=== PATIENT | male | born 1975 | race Caucasian/White ===

== ENCOUNTER → 2016-08-09 | Outpatient (CLI) | payer OTHER ==
[~2016-08-09] MED LIST: OMEG10007 PO; OXYC-57 PO; VALA1TAB31 PO
--- NOTE | 2016-08-09 12:24 | DIAGNOSTIC IMAGING REPORT ---
Limited abdominal ultrasound ABDOMEN FOR HERNIA CLINICAL HISTORY: R10.30 Left groin [id number] pain. Hernia. TECHNIQUE: Ultrasound COMPARISON STUDY: None FINDINGS: Small reducible fat-containing left inguinal hernia. Maximum diameter is approximately 1.3 cm. No evidence of bowel containment. No abnormality of the right inguinal region. IMPRESSION: Small fat-containing reducible left inguinal hernia. No evidence for right inguinal hernia. Electronically signed by: Brady Padron M.D. 08/09/2016 12:23 PM Dictated Date/Time: 08/09/2016 12:22 PM
== END | disposition home or self-care (01) ==
LOC: C.ULTR 10:49
PROVIDERS: ATTEND Nurse Practitioner Family
DX: R10.30 Lower abdominal pain, unspecified (principal); K40.90 Unilateral inguinal hernia, without obstruction or gangrene, not specified as recurrent

== ENCOUNTER → 2016-10-08 | Outpatient (CLI) | payer OTHER ==
[2016-10-08 16:29] LABS: BASO % 0.2 %; BASO ABS # 0.01 K/uL (0-0.2); COMPLETE YES; EOS % 1.4 %; IG% 0.5 %; LYMPH % 32.5 %; MEAN CELL VOLUME 92.3 fL (80-100); MEAN CORPUSCULAR HEMOGLOBIN 32.2 pg (25-34); MEAN CORPUSCULAR HGB CONC 34.9 g/dl (32-36); MEAN PLATELET VOLUME 11.4 fL (7.4-10.4); MONO % 7.8 %; NEUT % 57.6 %; PLATELET COUNT 238 K/uL (130-400); RED BLOOD COUNT 4.66 M/uL (4.7-6.1); WHITE BLOOD COUNT 5.53 K/uL (4.8-10.8)
[2016-10-08 17:01] LABS: ALT/SGPT 29 U/L (12-78); BLOOD UREA NITROGEN 16 mg/dl (7-18); BUN/CREATININE RATIO 21.1 (10-20); CALCIUM 8.6 mg/dl (8.5-10.1); CARBON DIOXIDE 29 mmol/L (21-32); CHLORIDE 104 mmol/L (98-107); CHOLESTEROL 198 mg/dl (0-200); CREATININE 0.74 mg/dl (0.60-1.40); GLUCOSE 89 mg/dl (70-99); SODIUM 140 mmol/L (136-145)
[2016-10-08 17:04] LABS: ALB/GLOB RATIO 1.2 (0.9-2); ALKALINE PHOSPHATASE 62 U/L (45-117); AST/SGOT 15 U/L (15-37); CHOLESTEROL/HDL RATIO 5.2; HDL CHOLESTEROL 38 mg/dl; LDL CHOLESTEROL CALCULATED 113 mg/dl; TRIGLYCERIDES 237 mg/dl (0-150); VERY LOW DENSITY LIPOPROT CALC 47 mg/dl
== END | disposition home or self-care (01) ==
LOC: C.LAB1850 15:46
PROVIDERS: ATTEND Nurse Practitioner Family
DX: Z13.220 Encounter for screening for lipoid disorders (principal); Z13.1 Encounter for screening for diabetes mellitus

== ENCOUNTER → 2016-11-13 | Day surgery (SDC) | payer OTHER ==
[2016-10-31 16:26] VITALS: BMI 31.0
[~2016-11-13] VITALS: Ht 177.8 cm; Wt 97.7 kg
[~2016-11-13] MED LIST changes: +ATROPINE SULFATE 0.1 MG/ML 5ML SYR IV PRN; +BACITRACIN 50000 UNIT VIAL ONE; +BUPIVACAINE 0.5 % 5 MG/1 ML MPF 30ML VIAL ONE; +CEFAZOLIN SOD 1 GM VIAL ONE; +DEXAMETHASONE SOD INJ 4 MG/ML VIAL ONE; +EpHEDrine SULFATE INJ 50 MG/ML AMP IV PRN; +FENTANYL CITRATE INJ 50 MCG/1 ML 2 ML VIAL ONE; +GLYCOPYRROLATE INJ 0.2 MG/ML VIAL ONE; +HYDROmorphone INJ 1 MG/ML SYR ONE; +HYDROmorphone INJ 2 MG/ML SYR/VIAL IV PRN; +KETOROLAC TROMETHAMINE 30 MG/ML VIAL ONE; +LACTATED RINGER'S 1000ML 1,000 ML IV SCH; +LIDOCAINE HCL 2% 2 ML VIAL (20MG/ML) ONE; +MIDAZOLAM HCL 1 MG/ML 2ML VIAL ONE; +MoRPHine SULFATE 4 MG/ML 1 ML CARP\\VIAL IV PRN; +NEOSTIGMINE METHYLSULFATE 5 MG/5 ML SYR ONE; +ONDANSETRON INJ 2 MG/ML 2 ML VIAL IV PRN; +ONDANSETRON INJ 2 MG/ML 2 ML VIAL ONE; +PHENYLEPHRINE 100MCG/ML 5ML SYR IV PRN; +PROPOFOL IV EMULSION 10 MG/ML 20 ML VIAL IV ONE; +ROCURONIUM BROMIDE 10 MG/ML 5 ML VIAL ONE
[2016-11-13 05:54] VITALS: BP 118/66; PULSE 66; TEMP 36.9; O2SAT 96; Ht 177.8 cm; Wt 97.7 kg
--- NOTE | 2016-11-13 06:39 | History and Physical ---
History & Physical Date November 13, 2016. History of Present Illness The patient is a 41 year old male with complaints of pain left groin and occ pain right groin. had toni ing hernia repair in 1995 and suspected used mesh then Additional History Hepatic Disease: No Endocrine Disorder: No Kidney Disease: No Hypertension: No Heart Disease: No Bleeding Tendencies: No Infectious Diseases: No Allergies Coded Allergies: No Known Allergies (Unverified , 11/13/16) Home Medications Scheduled Fish Oil (Allison-3), 1 CAP PO BID Scheduled PRN Valacyclovir Hcl (Valtrex), 2 GM PO Q12H PRN for UD Physical Examination Skin: warm/dry, no rash ENT: normal ENT inspection, pharynx normal Head: normocephalic, atraumatic Neck: supple, no adenopathy, trachea midline Respiratory/Chest: lungs clear, normal breath sounds, no respiratory distress Cardiovascular: regular rate, rhythm, no edema, no murmur Abdomen / GI: + pertinent finding (left recurrent ing hernia testes normal, right no definite hernia testes normal) Back: normal inspection Extremities: normal inspection, normal range of motion Neurologic/Psych: no motor/sensory deficits, alert, normal reflexes, oriented x 3 Diagnosis left rec ing hernia , possible right Plan of Treatment laparoscopic left ing rec hernia repair possible right rec ing hernia repair
--- NOTE | 2016-11-13 07:08 | Discharge Instructions ---
Discharge Instructions Date of Service November 13, 2016. Visit Reason for Visit: Left Inguinal Hernia Discharge Discharge Diagnosis / Problem: Laparoscopic hernia repair Discharge Goals Goal(s): Decrease discomfort Activity Recommendations Activity Limitations: as noted below Lifting Limitations: no more than 10 pounds Shower/Bathe: tomorrow Driving or Machine Use: 3-5 days Anesthesia . Post Anesthesia Instructions: If you have had General Anesthesia or IV Sedation: * Do not drive today. * Resume driving when surgeon permits. * Do not make important decisions or sign legal documents today. * Call surgeon for: 1. Temperature elevations greater than 101 degrees F. 2. Uncontrollable pain. 3. Excessive bleeding. 4. Persistent nausea and vomiting. 5. Medication intolerance (nausea, vomiting or rash). * For nausea and vomiting use only clear liquids such as: tea, soda, bouillon until nausea subsides, then gradually increase diet as tolerated. * If you have any concerns or questions, call your surgeon's office. If physician is unavailable and it is an emergency, call 911 or go to the nearest emergency room. . Instructions / Follow-Up Instructions / Follow-Up Dr. Bullock in 1 week, call [phone] if you do not already have an appt Ice left groin off and on alternating every 20 minutes until bedtime Diet Recommendations Recommended Home Diet: no limitations Pending Studies Studies pending at discharge: no Medical Emergencies . Who to Call and When: Medical Emergencies: If at any time you feel your situation is an emergency, please call 911 immediately. . Non-Emergent Contact Non-Emergency issues call your: Surgeon Call Non-Emergent contact if: you have a fever, temperature is above 101.5, your pain is not controlled . . "Provider Documentation" section prepared by Naren Harris. .
--- NOTE | 2016-11-13 08:16 | [facility] Post Operative Brief Note ---
Immediate Operative Summary Operative Date November 13, 2016. Pre-Operative Diagnosis Left Recurrent Inguinal Hernia, Possible Left Inguinal Hernia; History of Bilateral Inguinal Hernia Repairs Post-Operative Diagnosis Left Recurrent direct Inguinal Hernia, lipoma cord, neg exploration right ing canal Procedure(s) Performed Laparoscopic Recurrent Left Direct Inguinal Hernia Repair with Marlex Mesh, excision lipoma cord Evaluation of Right Inguinal Hernia Repair Surgeon Dr. Bullock Builder Beam Surgeon(s) DARRYL Bess Estimated Blood Loss 5 ml Findings smal direct dieect at symp pubis luz marina .8 cm with incarcerated fatty tissue, lipoma cord neg exploration right ing canal Specimens Culture--Urine (catheter)--sent for routine culture and sensitivity, sent to lab at 0730 A. Lipoma Left Inguinal
--- NOTE | 2016-11-13 08:44 | OPERATIVE REPORT ---
DATE OF OPERATION: 11/13/2016 PREOPERATIVE DIAGNOSIS: Left inguinal hernia, possible right inguinal hernia, both recurrent. POSTOPERATIVE DIAGNOSES: Left direct inguinal hernia recurrent, lipoma of the cord, negative exploration of the right groin canal. PROCEDURES: Laparoscopic repair of left indirect recurrent hernia with mesh Marlex patch, exploration of the right inguinal canal, excisional lipoma of the cord on the left. SURGEON: Dr. Bullock. CAR REPAIRER HELPER: Irsrael Harris PA-C. SUMMARY: The patient was brought into the operating room theater. Perez catheter was inserted. The abdomen was prepped with Betadine scrubbing solution and properly draped. We made a small incision supraumbilically sufficient enough to place a Veress needle followed by CO2 followed by 5 mm trocar. Point of entry inspected and no injury identified. At this point, the patient was placed in Trendelenburg position, the camera was inserted. We did not see any dimpling on either side of the inguinal canals. At this point, I placed a 5 mm left flank and a 5 mm right flank port with preemptive local analgesia 1% Xylocaine. The left inguinal area, I was able to reduce the hernia. Clinically on the right I was not sure the patient had a hernia, but he was having some discomfort; therefore we approached the left inguinal area first. As stated, there was no evidence of any peritoneal dimpling into the canal, but we opened the peritoneum from just at the medial aspect of the cord structure all the way to the medial umbilical ligament. Significant amount of fatty tissue was appreciated in the preperitoneal area. As we elevated this, we were able to expose even the cord. There was no evidence of any indirect hernia. As we freed down into the canal and went down to Matt's ligament and looking and paying attention to the symphysis pubis area for possible recurrence in that area as there usually are. There was a lipoma coming up on top of the iliac vessels almost along the cord which I removed and biopsied. At this point, we did not see any direct defect immediately, there was no femoral hernia. We then moved up towards right at the symphysis pubis and we could see incarcerated tissue going down right the pubis. We at this point, were able to reduce this all intraperitoneally and found the defect was about 0.8 cm in size. It was well delineated. At this point what we did was brought in a sheet of Marlex mesh. I cut a circular ring approximately 2 cm or so in size and placed it in the muscular fascial planes centering it on top of the opening. We tacked it down with metal ProTack in that area. They appeared to be quite secure and the mesh overlapped the area quite nicely. At this point, we then explored the right inguinal canal in a similar fashion. I opened up along the cord structures, the peritoneum all the way to the medial umbilical ligament, dissected in the preperitoneal area and identified the symphysis pubis Matt's ligament. All the way up to the symphysis pubis there was no evidence of any recurrent hernia on this side. At this point, we used the clips to close the peritoneum in the left inguinal area decreasing the intra-abdominal pressure approximately 7. The right inguinal area pretty much closed on its own. We did not apply any clips there but we had not placed any mesh. Individual trocars removed, last umbilical trocar. Wounds were closed with Monocryl. Steri-Strips applied. The procedure was tolerated well by the patient. Estimated blood loss approximately 5 mL. The patient was taken to recovery room in good condition. I attest to the content of the Intraoperative Record and any orders documented therein. Any exceptio ns are noted below.
[2016-11-13 09:30] VITALS: BP 115/78; PULSE 68; TEMP 36.5; O2SAT 91
[2016-11-13 09:50] VITALS: BP 105/70; PULSE 62; O2SAT 95
--- NOTE | 2016-11-13 10:25 | Anesthesiology Progress Note ---
Anesthesia Post Op Note Date & Time November 13, 2016 at 10:25 Vital Signs Pain Intensity: 0 Vital Signs Past 12 Hours Date Time Temp Pulse Resp B/P Pulse Ox O2 Delivery O2 Flow Rate FiO2 11/13/16 09:50 62 20 105/70 95 Nasal Cannula 2 62 11/13/16 09:30 36.5 68 18 115/78 91 Room Air 68 11/13/16 09:10 36.2 61 18 110/79 95 Room Air 11/13/16 09:00 64 18 121/80 93 Room Air 11/13/16 08:50 71 18 124/81 99 Mask 10 11/13/16 08:40 84 18 141/101 97 Mask 10 11/13/16 08:33 36.2 76 18 133/95 98 Mask 10 11/13/16 05:54 36.9 66 18 118/66 96 Room Air Notes Mental Status: alert / awake / arousable, participated in evaluation Pt Amnestic to Procedure: Yes Nausea / Vomiting: adequately controlled Pain: adequately controlled Airway Patency, RR, SpO2: stable & adequate BP & HR: stable & adequate Hydration State: stable & adequate Anesthetic Complications: no major complications apparent
[2016-11-13 10:29] VITALS: BP 106/66; PULSE 62; O2SAT 98
[2016-11-13 11:18] VITALS: BP 109/66; PULSE 62; TEMP 36.5; O2SAT 98
== END | disposition home or self-care (01) ==
LOC: C.ACU 05:26
PROVIDERS: ATTEND Surgery
DX: K40.91 Unilateral inguinal hernia, without obstruction or gangrene, recurrent (principal); D17.6 Benign lipomatous neoplasm of spermatic cord; Z98.890 Other specified postprocedural states; E66.9 Obesity, unspecified

== ENCOUNTER 2017-10-01 19:30 | Emergency (ER) | payer OTHER ==
[~2017-10-01] VITALS: Ht 180.3 cm; Wt 100.5 kg
[~2017-10-01 19:30] MED LIST changes: -ATROPINE SULFATE 0.1 MG/ML 5ML SYR IV PRN; -BACITRACIN 50000 UNIT VIAL ONE; -BUPIVACAINE 0.5 % 5 MG/1 ML MPF 30ML VIAL ONE; -CEFAZOLIN SOD 1 GM VIAL ONE; -DEXAMETHASONE SOD INJ 4 MG/ML VIAL ONE; -EpHEDrine SULFATE INJ 50 MG/ML AMP IV PRN; -FENTANYL CITRATE INJ 50 MCG/1 ML 2 ML VIAL ONE; -GLYCOPYRROLATE INJ 0.2 MG/ML VIAL ONE; -HYDROmorphone INJ 1 MG/ML SYR ONE; -HYDROmorphone INJ 2 MG/ML SYR/VIAL IV PRN; -KETOROLAC TROMETHAMINE 30 MG/ML VIAL ONE; -LACTATED RINGER'S 1000ML 1,000 ML IV SCH; -LIDOCAINE HCL 2% 2 ML VIAL (20MG/ML) ONE; -MIDAZOLAM HCL 1 MG/ML 2ML VIAL ONE; -MoRPHine SULFATE 4 MG/ML 1 ML CARP\\VIAL IV PRN; -NEOSTIGMINE METHYLSULFATE 5 MG/5 ML SYR ONE; -ONDANSETRON INJ 2 MG/ML 2 ML VIAL IV PRN; -ONDANSETRON INJ 2 MG/ML 2 ML VIAL ONE; -OXYC-57 PO; -PHENYLEPHRINE 100MCG/ML 5ML SYR IV PRN; -PROPOFOL IV EMULSION 10 MG/ML 20 ML VIAL IV ONE; -ROCURONIUM BROMIDE 10 MG/ML 5 ML VIAL ONE
[2017-10-01 19:39] VITALS: TEMP 37; Ht 180.3 cm; Wt 100.5 kg
[2017-10-01] MEDS ORDERED: SODIUM CHLORIDE 0.9% 1000ML 1,000 ML IV STA (19:43)
[2017-10-01] MEDS ORDERED: KETOROLAC TROMETHAMINE 30 MG/ML VIAL IV STA (19:43)
--- NOTE | 2017-10-01 19:55 | EMERGENCY ROOM VISIT NOTE ---
History Report prepared by Rachelle: sUha Claire Under the Supervision of: Dr. Dameon Schwab M.D. First contact with patient: 19:40 Chief Complaint: CHEST PAIN Stated Complaint: DISCOMFORT ON LEFT SIDE OF CHEST History of Present Illness The patient is a 42 year old male who presents to the Emergency Room with complaints of sudden chest pain starting a few hours ago. The patient states that it is an odd discomfort on the left side of his chest. The patient notes that he worked out his whole body yesterday, but stated that his legs have been sore since this morning. He states that his chest pain didn't start till this evening and he cannot tell if it feels like it is on the inside or the outside. He notes that this was the first time in a while that he has worked out. The patient denies shortness of breath, cough, congestion, headaches, dizziness, fevers, chills, nausea, vomiting, the pain radiating, a history of PE/DVT, being a smoker, and recent alcohol use. He notes he last drank this weekend. The patient notes that he recently traveled 3 hours to [place] two days ago. The patient notes a history of high cholesterol and hypertension. Source of History: patient Onset: a few hours ago Position: chest Quality: other (odd discomfort) Timing: other (sudden) Associated Symptoms: No fevers, No chills, No headache, No cough, No SOB, No nausea, No vomiting Note: The patient denies congestion, dizziness, and the pain radiating. Review of Systems See HPI for pertinent positives and negatives. A total of ten systems were reviewed and were otherwise negative. Past Medical & Surgical Medical Problems: (1) HTN (hypertension) (2) Hyperlipidemia Surgical Problems: (1) S/P hernia surgery Family History Heart disease Social History Smoking Status: Never Smoker Alcohol Use: occasionally Marital Status: Housing Status: lives with significant other Occupation Status: employed Current/Historical Medications Scheduled Fish Oil (Malone-3), 1 CAP PO DAILY Scheduled PRN Ibuprofen Tab (Motrin), 800 MG PO Q8H PRN for Pain Allergies Coded Allergies: No Known Allergies (Unverified , 11/13/16) Physical Exam Vital Signs Date Time Temp Pulse Resp B/P (MAP) Pulse Ox O2 Delivery O2 Flow Rate FiO2 10/01/17 20:58 72 16 125/93 98 Room Air 10/01/17 20:24 68 10/01/17 19:58 98 Room Air 10/01/17 19:39 37.0 67 18 132/88 97 Room Air Physical Exam GENERAL: Awake, alert, well-appearing, in no distress HENT: Normocephalic, atraumatic. Oropharynx unremarkable. EYES: Normal conjunctiva. Sclera non-icteric. NECK: Supple. No nuchal rigidity. FROM. No JVD. RESPIRATORY: Clear to auscultation. CARDIAC: Regular rate, normal rhythm. Extremities warm and well perfused. Pulses equal. ABDOMEN: Soft, non-distended. No tenderness to palpation. No rebound or guarding. No masses. RECTAL: Deferred. MUSCULOSKELETAL: Chest examination reveals no tenderness. The back is symmetrical on inspection without obvious abnormality. There is no CVA tenderness to palpation. No joint edema. LOWER EXTREMITIES: Calves are equal size bilaterally and non-tender. No edema. No discoloration. NEURO: Normal sensorium. No sensory or motor deficits noted. SKIN: No rash or jaundice noted. Medical Decision & Procedures ER Provider Diagnostic Interpretation: Radiology results as stated below per my review and radiologist interpretation: CHEST ONE VIEW PORTABLE CLINICAL HISTORY: CHEST PAIN pain COMPARISON STUDY: No previous studies for comparison. FINDINGS: Moderate cardiomegaly. Poorly defined interstitial infiltrate left base. Lungs otherwise are clear. IMPRESSION: 1. Moderate cardiomegaly. 2. Interstitial infiltrate left base. The above report was generated using voice recognition software. It may contain grammatical, syntax or spelling errors. Electronically signed by: Brady Padron M.D. 10/01/2017 8:12 PM Dictated Date/Time: 10/01/2017 8:11 PM Laboratory Results 10/01/17 19:45 Red Blood Count 4.52, Mean Corpuscular Volume 94.5, Mean Corpuscular Hemoglobin 33.0, Mean Corpuscular Hemoglobin Concent 34.9, Mean Platelet Volume 11.8, Neutrophils (%) (Auto) 63.1, Lymphocytes (%) (Auto) 26.6, Monocytes (%) (Auto) 8.7, Eosinophils (%) (Auto) 0.9, Basophils (%) (Auto) 0.2, Neutrophils # (Auto) 3.68, Lymphocytes # (Auto) 1.55, Monocytes # (Auto) 0.51, Eosinophils # (Auto) 0.05, Basophils # (Auto) 0.01 10/01/17 19:45 Test 10/01/17 19:45 White Blood Count 5.83 K/uL (4.8-10.8) Red Blood Count 4.52 M/uL (4.7-6.1) Hemoglobin 14.9 g/dL (14.0-18.0) Hematocrit 42.7 % (42-52) Mean Corpuscular Volume 94.5 fL (80-100) Mean Corpuscular Hemoglobin 33.0 pg (25-34) Mean Corpuscular Hemoglobin Concent 34.9 g/dl (32-36) Platelet Count 225 K/uL (130-400) Mean Platelet Volume 11.8 fL (7.4-10.4) Neutrophils (%) (Auto) 63.1 % Lymphocytes (%) (Auto) 26.6 % Monocytes (%) (Auto) 8.7 % Eosinophils (%) (Auto) 0.9 % Basophils (%) (Auto) 0.2 % Neutrophils # (Auto) 3.68 K/uL (1.4-6.5) Lymphocytes # (Auto) 1.55 K/uL (1.2-3.4) Monocytes # (Auto) 0.51 K/uL (0.11-0.59) Eosinophils # (Auto) 0.05 K/uL (0-0.5) Basophils # (Auto) 0.01 K/uL (0-0.2) RDW Standard Deviation 44.6 fL (36.4-46.3) RDW Coefficient of Variation 12.9 % (11.5-14.5) Immature Granulocyte % (Auto) 0.5 % Immature Granulocyte # (Auto) 0.03 K/uL (0.00-0.02) Anion Gap 6.0 mmol/L (3-11) Est Creatinine Clear Calc Drug Dose 125.1 ml/min Estimated GFR () 118.4 Estimated GFR (Non- 102.1 BUN/Creatinine Ratio 15.9 (10-20) Calcium Level 8.4 mg/dl (8.5-10.1) Total Bilirubin 0.3 mg/dl (0.2-1) Direct Bilirubin < 0.1 mg/dl (0-0.2) Aspartate Amino Transf (AST/SGOT) 20 U/L (15-37) Alanine Aminotransferase (ALT/SGPT) 31 U/L (12-78) Alkaline Phosphatase 68 U/L (45-117) Troponin I < 0.015 ng/ml (0-0.045) Total Protein 7.2 gm/dl (6.4-8.2) Albumin 3.9 gm/dl (3.4-5.0) Lipase 124 U/L (73-393) Laboratory results reviewed by me Medications Administered Medications (Trade) Dose Ordered Sig/Kaila Route Start Time Stop Time Status Last Admin Dose Admin Sodium Chloride 1,000 ml @ 999 mls/hr Q1H1M STAT IV 10/01/17 19:43 10/01/17 20:43 DC 10/01/17 19:56 999 MLS/HR Ketorolac Tromethamine (Toradol Inj) 15 mg NOW STAT IV 10/01/17 19:43 10/01/17 19:48 DC 10/01/17 19:56 15 MG ECG Per My Interpretation Indication: chest pain Rate (beats per minute): 63 Rhythm: normal sinus Findings: no acute ischemic change, other (normal axis) ED Course 1941: The patient was evaluated in room C4. A complete history and physical exam was performed. 2114: I reevaluated the patient. Discussed results and discharge instructions: He verbalized understanding and agreement. The patient is ready for discharge. Medical Decision I reviewed the patient's past medical history, medications, and the nursing notes as described above. Differential diagnosis: Etiologies such as cardiac ischemia, aortic dissection, pulmonary embolism, pneumonia, pneumothorax, musculoskeletal, infections, pericarditis, myocarditis , esophageal rupture, gastrointestinal, as well as others were entertained. The patient is a 42-year-old presents emergency department with constant chest pain 2 hours prior to arrival per hpi. Of note, the patient's symptoms occur in the setting of having workout yesterday feeling sore all over. On arrival patient is well-appearing, no acute distress, stable vital signs. EKG is unremarkable without any evidence of ischemia. Troponin negative. Labs otherwise unremarkable including WBC within normal limits. Chest x-ray with questionable left basilar infiltrate. However I did discuss this with the patient he denies any infectious or respiratory symptoms. Given that the patient is afebrile with normal WBC we agree that we will defer any treatment at this time he will follow-up with his doctor for a repeat chest x-ray. Otherwise the patient symptoms resolved after Toradol. Patient's heart score is 1, low risk, thus cardiac etiology unlikely. Findings and plan for follow-up reviewed with patient. Patient agreeable and d/c'd per discharge instructions. Medication Reconcilliation Current Medication List: was personally reviewed by me Blood Pressure Screening Patient's blood pressure: Normal blood pressure Blood pressure disposition: Did not require urgent referral Impression Primary Impression: Left sided chest pain Scribe Attestation The scribe's documentation has been prepared under my direction and personally reviewed by me in its entirety. I confirm that the note above accurately reflects all work, treatment, procedures, and medical decision making performed by me. Departure Information Dispostion Home / Self-Care Prescriptions Ibuprofen Tab (MOTRIN) 800 Mg Tab 800 MG PO Q8H Y for Pain for 7 Days, #21 TAB Prov: Dameon Schwab M.D. 10/01/17 Referrals Anthony Diaz III, CRNP (PCP) Forms Call Back Authorization, HOME CARE DOCUMENTATION FORM, IMPORTANT VISIT INFORMATION Patient Instructions ED Chest Pain Atypical Unkn Cause, My [facility] Additional Instructions Please follow up with your primary care physician in the next week for re- evaluation and a repeat chest xray. The cause of your symptoms is unclear at this time and may be due to muscular strain. Otherwise, your exam, EKG, chest xray, and lab results did not show signs of an emergent condition at this time. Acetaminophen or ibuprofen for pain and fevers as needed. Drink plenty of fluids to ensure hydration. Return to the emergency department for worsening symptoms as described in the accompanying instructions.
[2017-10-01 19:58] VITALS: O2SAT 98
--- NOTE | 2017-10-01 20:13 | DIAGNOSTIC IMAGING REPORT ---
CHEST ONE VIEW PORTABLE CLINICAL HISTORY: CHEST PAIN pain COMPARISON STUDY: No previous studies for comparison. FINDINGS: Moderate cardiomegaly. Poorly defined interstitial infiltrate left base. Lungs otherwise are clear. IMPRESSION: 1. Moderate cardiomegaly. 2. Interstitial infiltrate left base. The above report was generated using voice recognition software. It may contain grammatical, syntax or spelling errors. Electronically signed by: Brady Padron M.D. 10/01/2017 8:12 PM Dictated Date/Time: 10/01/2017 8:11 PM
[2017-10-01 20:16] LABS: BASO % 0.2 %; BASO ABS # 0.01 K/uL (0-0.2); EOS % 0.9 %; EOS ABS # 0.05 K/uL (0-0.5); HEMATOCRIT 42.7 % (42-52); HEMOGLOBIN 14.9 g/dL (14.0-18.0); IG# 0.03 K/uL (0.00-0.02); LYMPH % 26.6 %; LYMPH ABS # 1.55 K/uL (1.2-3.4); MEAN CELL VOLUME 94.5 fL (80-100); MEAN CORPUSCULAR HGB CONC 34.9 g/dl (32-36); MEAN PLATELET VOLUME 11.8 fL (7.4-10.4); MONO % 8.7 %; MONO ABS # 0.51 K/uL (0.11-0.59); NEUT % 63.1 %; NEUT ABS # 3.68 K/uL (1.4-6.5); PLATELET COUNT 225 K/uL (130-400); RED CELL DISTRIBUTION WIDTH CV 12.9 % (11.5-14.5); RED CELL DISTRIBUTION WIDTH SD 44.6 fL (36.4-46.3); WHITE BLOOD COUNT 5.83 K/uL (4.8-10.8)
[2017-10-01 20:32] LABS: ALBUMIN 3.9 gm/dl (3.4-5.0); ALT/SGPT 31 U/L (12-78); BLOOD UREA NITROGEN 15 mg/dl (7-18); CALCIUM 8.4 mg/dl (8.5-10.1); CARBON DIOXIDE 28 mmol/L (21-32); CREATININE 0.91 mg/dl (0.60-1.40); GLUCOSE 97 mg/dl (70-99); LIPASE 124 U/L (73-393); SODIUM 139 mmol/L (136-145)
[2017-10-01 20:35] LABS: ALKALINE PHOSPHATASE 68 U/L (45-117); AST/SGOT 20 U/L (15-37); TOTAL PROTEIN 7.2 gm/dl (6.4-8.2)
[2017-10-01 20:58] VITALS: BP 125/93; PULSE 72; O2SAT 98
[2017-10-01] MEDS ORDERED: IBUP-1451 PO (21:19)
== END 2017-10-01 21:26 | disposition home or self-care (01) ==
LOC: C.EDB 19:33 → C.EDC 21:26
DX: R07.89 Other chest pain (principal); Y93.B9 Activity, other involving muscle strengthening exercises; I10 Essential (primary) hypertension; E78.5 Hyperlipidemia, unspecified

== ENCOUNTER → 2017-10-07 | Outpatient (CLI) | payer OTHER ==
[~2017-10-07] MED LIST changes: +IBUP-1451 PO
== END | disposition home or self-care (01) ==
LOC: C.LAB 15:25
PROVIDERS: ATTEND Obstetrics & Gynecology
DX: Z31.41 Encounter for fertility testing (principal)

== ENCOUNTER → 2018-01-27 | Outpatient (CLI) | payer OTHER ==
[~2018-01-27] MED LIST changes: -IBUP-1451 PO; -VALA1TAB31 PO
== END | disposition home or self-care (01) ==
LOC: C.PATHSPEC 13:11
PROVIDERS: ATTEND Podiatrist Foot & Ankle Surgery
DX: B07.0 Plantar wart (principal)